=== PATIENT | male | born 1985 | race Caucasian/White ===

== ENCOUNTER 2023-09-03 23:19 | Emergency (ER) | payer OTHER, BC ==
[2023-09-03] MEDS ORDERED: Ondansetron 4 MG Tab.DIS PO ONE (23:20)
[2023-09-03] MEDS ORDERED: Sodium Chloride 0.9% 10 ML Syringe FLUSH PRN (23:38)
[2023-09-03 23:51] LABS: HEMATOCRIT 44.7 % (38.3-50.1); HEMOGLOBIN 15.1 g/dL (12.9-17.7); MEAN CORPUSCULAR HEMOGLOBIN 30.3 pg (27.0-33.3); MEAN CORPUSCULAR HGB CONC 33.9 g/dL (28.7-35.3); MEAN CORPUSCULAR VOLUME 89.6 fL (80.8-98.7); MEAN PLATELET VOLUME 6.4 fL (6.7-11.0); PLATELET COUNT,PLT 270 x10(3)uL (117-477); RED BLOOD CELL COUNT 4.99 x10(6)uL (3.90-5.90); RED CELL DISTRIBUTION WIDTH 13.5 % (12.4-15.0); WHITE BLOOD CELL COUNT,WBC 10.2 x10-3/uL (3.2-10.1)
[2023-09-03] MEDS: Prochlorperazine 10 MG/2 ML SDV IVPUSH ONE (23:54)
[2023-09-03] MEDS: Sodium Chloride 0.9% 1,000 ML IV SCH (23:54)
[2023-09-03 23:55] LABS: BLOOD UREA NITROGEN,BUN 18 mg/dL (7-18); CALCIUM 9.1 mg/dL (8.6-10.2); CARBON DIOXIDE,CO2 26 mmol/L (21-32); CHLORIDE,CL 99 mmol/L (100-110); EST CRCL DRUG DOSING (CG) 100.16 mL/min; ESTIMATED GFR 99 mL/min (>60); GLUCOSE RANDOM 149 mg/dL (80-116); POTASSIUM,K 3.5 mmol/L (3.5-5.3); SODIUM,NA 137 mmol/L (135-145)
[2023-09-03 23:57] LABS: BAND PERCENT MAN 5 % (0-6); SEG NEUTROPHILS PERCENT MAN 81 % (46-82)
[2023-09-03 23:58] LABS: EOSINOPHILS PERCENT MAN 1 % (0-5); LYMPHOCYTES PERCENT MAN 8 % (13-37); MONOCYTES PERCENT MAN 5 % (4-12)
== END 2023-09-04 01:20 | disposition home or self-care (01) ==
LOC: FB.ED 23:19
DX: K52.9 Noninfective gastroenteritis and colitis, unspecified (principal); E86.0 Dehydration; F17.210 Nicotine dependence, cigarettes, uncomplicated; Z88.8 Allergy status to other drugs, medicaments and biological substances
CPT/HCPCS: 80048; 85025; 96361; 96374; 99283; 99284; J0780; J7030; Q0162